=== PATIENT | male | born 1980 | race Two or more races ===

== ENCOUNTER 2018-08-16 19:08 | Inpatient (IN) | payer OTHER ==
[~2018-08-16] VITALS: Ht 172.7 cm; Wt 59.9 kg
[2018-08-16] MEDS ORDERED: HUMALOG100 UNIT/4 SUBQ (19:14)
[2018-08-16] MEDS ORDERED: UNOBMED (19:14)
[2018-08-16 19:28] VITALS: BP 138/76
[2018-08-16 19:28] LABS: BASOPHILS % (AUTO) 1.7 % (0.0-2.0); EOSINOPHILS % (AUTO) 0.1 % (0.0-3.0); HEMATOCRIT 41.4 % (42.0-52.0); HEMOGLOBIN 12.9 G/DL (14.2-18.0); LYMPHOCYTES % (AUTO) 14.7 % (20.0-45.0); MEAN CORPUSCULAR VOLUME 87 FL (80-99); MONOCYTES % (AUTO) 6.6 % (1.0-10.0); NEUTROPHILS % (AUTO) 76.9 % (45.0-75.0); PLATELET COUNT 269 K/UL (150-450); RED BLOOD COUNT 4.77 M/UL (4.70-6.10); RED CELL DISTRIBUTION WIDTH 14.6 % (11.6-14.8); WHITE BLOOD COUNT 9.7 K/UL (4.8-10.8)
[2018-08-16] MEDS ORDERED: Insulin Human Regular 100units/ml 3ml IV ONE (19:30)
--- NOTE | 2018-08-16 19:30 | Emergency Room Report ---
History of Present Illness General Chief Complaint: Chest Pain Source: Patient Present Illness HPI Patient is a 38-year-old male brought in by EMS after increased blood sugar. Patient had reportedly been compliant with his insulin. He states that he had episode of diabetic ketoacidosis approximately 2 months ago. Patient had prior history of type 1 diabetes. He reports having increased difficulty with breathing. Patient denies any vomiting or diarrhea. He denies any fever. He denies any chest discomfort. Allergies: Coded Allergies: SULFA (SULFONAMIDE ANTIBIOTICS) (Verified Allergy, Unknown, 08/16/18) Patient History Past Medical History: see triage record Reviewed Nursing Documentation: PMH: Agreed; PSxH: Agreed Nursing Documentation-PMH Past Medical History: No History, Except For Hx Cardiac Problems: No - HIV Hx Hypertension: Yes Hx Diabetes: Yes Review of Systems All Other Systems: negative except mentioned in HPI Physical Exam Vital Signs Date Time Temp Pulse Resp B/P (MAP) Pulse Ox O2 Delivery O2 Flow Rate FiO2 08/16/18 19:05 90 24 138/76 96 Room Air General Appearance: alert, mild distress, Chronically Ill Eyes: bilateral eye other ENT: dry mucus membranes Respiratory: lungs clear Cardiovascular #1: normal peripheral pulses, regular rate, rhythm Gastrointestinal: normal inspection Musculoskeletal: normal inspection Neurologic: normal inspection, alert, oriented x3, responsive, diagnostic assistant III-XII nml as tested, motor strength/tone normal Skin: normal inspection, normal color Procedures Critical Care Time Critical Care Time Patient had a critical medical condition which untreated could potentially result in life or limb threatening injury. Total critical care time excluding procedures approximately 45 minutes. Medical Decision Making Diagnostic Impression: Primary Impression: Diabetic keto-acidosis ER Course Patient presented for shortness of breath. Differential diagnosis include is not limited to diabetic ketoacidosis, pneumonia, anemia among others. Because of complexity of patient's case laboratory testing and imaging studies were ordered. Patient was noted to have markedly elevated blood sugar greater than 700 initially. Patient was started on IV fluids and as well as IV insulin. He was started on insulin drip. Patient was noted to have some improvement in his blood sugar. Patient's laboratory testing was notable for pH slightly greater than 7. Patient's bicarb on metabolic panel was less than 5. Anion gap was 32. patient's potassium was 5 patient was started on insulin drip. Dr. Blake Danielle was contacted for inpatient management Labs Test 08/16/18 19:20 4/28/19 19:55 White Blood Count 9.7 K/UL (4.8-10.8) Red Blood Count 4.77 M/UL (4.70-6.10) Hemoglobin 12.9 G/DL (14.2-18.0) Hematocrit 41.4 % (42.0-52.0) Mean Corpuscular Volume 87 FL (80-99) Mean Corpuscular Hemoglobin 27.1 PG (27.0-31.0) Mean Corpuscular Hemoglobin Concent 31.3 G/DL (32.0-36.0) Red Cell Distribution Width 14.6 % (11.6-14.8) Platelet Count 269 K/UL (150-450) Mean Platelet Volume 6.9 FL (6.5-10.1) Neutrophils (%) (Auto) 76.9 % (45.0-75.0) Lymphocytes (%) (Auto) 14.7 % (20.0-45.0) Monocytes (%) (Auto) 6.6 % (1.0-10.0) Eosinophils (%) (Auto) 0.1 % (0.0-3.0) Basophils (%) (Auto) 1.7 % (0.0-2.0) Urine Color Pale yellow Urine Appearance Clear Urine pH 5 (4.5-8.0) Urine Specific [place] 1.015 (1.005-1.035) Urine Protein 2+ (NEGATIVE) Urine Glucose (UA) 4+ (NEGATIVE) Urine Ketones 4+ (NEGATIVE) Urine Blood 2+ (NEGATIVE) Urine Nitrite Negative (NEGATIVE) Urine Bilirubin Negative (NEGATIVE) Urine Urobilinogen Normal MG/DL (0.0-1.0) Urine Leukocyte Esterase Negative (NEGATIVE) Urine RBC 0-2 /HPF (0 - 0) Urine WBC 0 /HPF (0 - 0) Urine Squamous Epithelial Cells None /LPF (NONE/OCC) Urine Bacteria None /HPF (NONE) Sodium Level 130 MMOL/L (136-145) Potassium Level 5.0 MMOL/L (3.5-5.1) Chloride Level 93 MMOL/L (98-107) Carbon Dioxide Level < 5 MMOL/L (21-32) Anion Gap 32 mmol/L (5-15) Blood Urea Nitrogen 19 mg/dL (7-18) Creatinine 1.9 MG/DL (0.55-1.30) Estimat Glomerular Filtration Rate 40.1 mL/min (>60) Glucose Level 712 MG/DL (74-106) Calcium Level 8.8 MG/DL (8.5-10.1) Magnesium Level 2.2 MG/DL (1.8-2.4) Total Bilirubin 1.2 MG/DL (0.2-1.0) Direct Bilirubin 0.2 MG/DL (0.0-0.3) Aspartate Amino Transf (AST/SGOT) 13 U/L (15-37) Alanine Aminotransferase (ALT/SGPT) 24 U/L (12-78) Alkaline Phosphatase 201 U/L (46-116) Total Protein 8.4 G/DL (6.4-8.2) Albumin 4.0 G/DL (3.4-5.0) Globulin 4.4 g/dL Albumin/Globulin Ratio 0.9 (1.0-2.7) Lipase 152 U/L (73-393) Acetone Level Positive-moderate (NEGATIVE) Venous Blood pH 7.020 Venous Blood Partial Pressure CO2 16.4 Venous Blood Partial Pressure O2 57.8 Venous Blood HCO3 4.1 Venous Blood Total Carbon Dioxide 16.4 Venous Blood Oxygen Saturation 81.4 Venous Blood Base Excess -25.1 Methemoglobin 0.5 EKG Diagnostic Results Rate: normal Rhythm: NSR - 96 ST Segments: no acute changes Last Vital Signs Date Time Temp Pulse Resp B/P (MAP) Pulse Ox O2 Delivery O2 Flow Rate FiO2 08/16/18 19:05 90 24 138/76 96 Room Air Status: improved Condition: Critical Maxim Lakhani MD Aug 16, 2018 19:30
[2018-08-16 19:49] LABS: ALANINE AMINOTRANSFERASE 24 U/L (12-78); ALBUMIN/GLOBULIN RATIO 0.9 (1.0-2.7); ALKALINE PHOSPHATASE 201 U/L (46-116); ANION GAP 32 mmol/L (5-15); ASPARTATE AMINO TRANSFERASE 13 U/L (15-37); BILIRUBIN,TOTAL 1.2 MG/DL (0.2-1.0); BLOOD UREA NITROGEN 19 mg/dL (7-18); CALCIUM 8.8 MG/DL (8.5-10.1); CHLORIDE 93 MMOL/L (98-107); CREATININE 1.9 MG/DL (0.55-1.30); SODIUM 130 MMOL/L (136-145)
[2018-08-16 19:53] LABS: CARBON DIOXIDE < 5 MMOL/L (21-32)
[2018-08-16 19:54] LABS: BILIRUBIN,DIRECT 0.2 MG/DL (0.0-0.3)
[2018-08-16 20:17] LABS: APPEARANCE,URINE CLEAR; BILIRUBIN, URINE NEGATIVE (NEGATIVE); COLOR,URINE PALE YELLOW; GLUCOSE, URINE (UA) 4+ (NEGATIVE); KETONES,URINE 4+ (NEGATIVE); LEUKOCYTE ESTERASE ,URINE NEGATIVE (NEGATIVE); NITRITE,URINE NEGATIVE (NEGATIVE); PH,URINE 5 (4.5-8.0); PROTEIN,URINE 2+ (NEGATIVE); UROBILINOGEN,URINE NORMAL MG/DL (0.0-1.0)
[2018-08-16 20:46] VITALS: BP 117/78
[2018-08-16 22:28] VITALS: BP 120/79
[2018-08-16 23:00] VITALS: BP 133/90
[2018-08-16] MEDS ORDERED: Insulin Human Regular 100units/ml 3ml IV PRN (23:15)
[2018-08-16] MEDS ORDERED: Insulin Rate Change 1 Each MISC PRN (23:15)
[2018-08-16] MEDS ORDERED: Insulin Human Regular 100units/ml 3ml ONE (23:26)
[2018-08-16] MEDS: Insulin Human Regular 100units/ml 3ml IV PRN (23:46)
[2018-08-16] MEDS: Heparin 5000 units/ml inj SUBQ SCH (23:53)
[2018-08-17] VITALS (24 sets, daily range): BP systolic 92–168; BP diastolic 60–107
[2018-08-17] MEDS ORDERED: Insulin Rate Change 1 Each MISC PRN ×4 (05:15→23:00)
[2018-08-17] MEDS ORDERED: Insulin Human Regular 100units/ml 3ml IV PRN ×5 (05:15→19:15)
[2018-08-17 06:15] LABS: EOSINOPHILS % (AUTO) 0.6 % (0.0-3.0); HEMATOCRIT 34.3 % (42.0-52.0); HEMOGLOBIN 11.1 G/DL (14.2-18.0); LYMPHOCYTES % (AUTO) 13.9 % (20.0-45.0); MEAN CORPUSCULAR VOLUME 85 FL (80-99); MONOCYTES % (AUTO) 10.7 % (1.0-10.0); NEUTROPHILS % (AUTO) 72.9 % (45.0-75.0); PLATELET COUNT 240 K/UL (150-450); RED BLOOD COUNT 4.06 M/UL (4.70-6.10); RED CELL DISTRIBUTION WIDTH 14.6 % (11.6-14.8); WHITE BLOOD COUNT 5.7 K/UL (4.8-10.8)
[2018-08-17 06:32] LABS: ALANINE AMINOTRANSFERASE 20 U/L (12-78); ALBUMIN 3.3 G/DL (3.4-5.0); ALBUMIN/GLOBULIN RATIO 0.9 (1.0-2.7); ALKALINE PHOSPHATASE 148 U/L (46-116); ANION GAP 16 mmol/L (5-15); ASPARTATE AMINO TRANSFERASE 11 U/L (15-37); BILIRUBIN,DIRECT 0.2 MG/DL (0.0-0.3); BILIRUBIN,TOTAL 1.4 MG/DL (0.2-1.0); BLOOD UREA NITROGEN 13 mg/dL (7-18); CALCIUM 8.2 MG/DL (8.5-10.1); CARBON DIOXIDE 17 MMOL/L (21-32); CHLORIDE 110 MMOL/L (98-107); CREATININE 1.3 MG/DL (0.55-1.30); POTASSIUM 3.4 MMOL/L (3.5-5.1); SODIUM 142 MMOL/L (136-145)
[2018-08-17] MEDS: Pantoprazole Inj IVP SCH (08:22)
[2018-08-17] MEDS: Heparin 5000 units/ml inj SUBQ SCH ×2 (08:23→21:16)
--- NOTE | 2018-08-17 09:18 | Diagnostic Imaging Report ---
Indication: Cough Technique: One view of the chest Comparison: none Findings: Lungs and pleural spaces are clear. Heart size is normal Impression: No acute process
[2018-08-17] MEDS: Insulin Human Regular 100units/ml 3ml IV PRN ×3 (11:03→14:07)
--- NOTE | 2018-08-17 17:12 | History & Physical ---
History and Physical History & Physicial Chief complaint: Short of breath Present illness: This 38-year-old has type 1 diabetes for 20 years. He reports that he has been taking his insulin regularly. He had diabetic ketoacidosis and was hospitalized about 2 months ago. He offers no acute illness to explain his episode at this time. He began getting short of breath 1 day prior to admission and came to the emergency department with high blood sugar and severe acidosis. He was given medications and insulin drip was started. He is feeling better at this time. Past medical history: Type 1 diabetes mellitus with history of recurrent DKA Allergy sulfonamide antibiotics Medications reviewed Review of systems otherwise unremarkable He denies fevers chills or sweats. He denies chest pain nausea or vomiting. He has lost some weight. On exam he was tachypneic and tachycardic on admission but is now normal He is a thin young man in no distress The vital signs are stable The chest is clear and cardiac rhythm is regular The abdomen is soft and nontender without liver or spleen enlargement The extremities have no clubbing, cyanosis or edema There are no neurologic deficits Laboratory studies are reviewed Chest x-ray is clear Impressions: Diabetic ketoacidosis Plan: The patient improved on an insulin drip and is now been changed to subcutaneous Endocrinology consultation has been requested We will start oral diabetic diet Blake Danielle MD Aug 17, 2018 17:12
[2018-08-18] VITALS (21 sets, daily range): BP systolic 93–166; BP diastolic 66–104
[2018-08-18 05:51] LABS: HEMATOCRIT 26.6 % (42.0-52.0); HEMOGLOBIN 8.9 G/DL (14.2-18.0); MEAN CORPUSCULAR VOLUME 83 FL (80-99); PLATELET COUNT 168 K/UL (150-450); RED BLOOD COUNT 3.19 M/UL (4.70-6.10); RED CELL DISTRIBUTION WIDTH 14.4 % (11.6-14.8); WHITE BLOOD COUNT 3.1 K/UL (4.8-10.8)
[2018-08-18 06:18] LABS: ANION GAP 11 mmol/L (5-15); BLOOD UREA NITROGEN 5 mg/dL (7-18); CALCIUM 6.1 MG/DL (8.5-10.1); CARBON DIOXIDE 19 MMOL/L (21-32); CHLORIDE 115 MMOL/L (98-107); CREATININE 0.6 MG/DL (0.55-1.30); SODIUM 144 MMOL/L (136-145)
[2018-08-18 06:20] LABS: POTASSIUM 2.5 MMOL/L (3.5-5.1)
[2018-08-18] MEDS: NovoLOG Insulin Flexpen SUBQ SCH ×6 (07:44→20:45)
[2018-08-18] MEDS: Pantoprazole Inj IVP SCH (08:25)
[2018-08-18] MEDS: Heparin 5000 units/ml inj SUBQ SCH ×2 (08:28→20:38)
[2018-08-18] MEDS ORDERED: Levemir Flexpen SUBQ SCH (09:00)
[2018-08-18] MEDS: NS w/KCl 20mEq 1,000 ML IV SCH ×3 (09:39→21:30)
--- NOTE | 2018-08-18 10:16 | Pulmonology Progress Note ---
Assessment/Plan Assessment/Plan Diabetic ketoacidosis HIV family reports he has HIV, will bring meds off insulin drip transfer out of ICU ambulate dc tomorrow if stable Subjective Constitutional: Reports: no symptoms Neurologic: Reports: other - dizzy Allergies: Coded Allergies: SULFA (SULFONAMIDE ANTIBIOTICS) (Verified Allergy, Unknown, 08/16/18) Objective Last 24 Hour Vital Signs Date Time Temp Pulse Resp B/P (MAP) Pulse Ox O2 Delivery O2 Flow Rate FiO2 08/18/18 09:00 92 17 148/92 (110) 100 08/18/18 08:00 Room Air 08/18/18 08:00 89 17 147/97 (114) 100 08/18/18 07:59 96 08/18/18 07:00 87 19 159/98 (118) 100 08/18/18 06:00 87 19 140/92 (108) 08/18/18 05:00 85 15 151/91 (111) 08/18/18 04:00 98.5 83 17 157/90 (112) 08/18/18 04:00 89 08/18/18 04:00 Room Air 08/18/18 03:00 88 13 100 08/18/18 03:00 88 13 116/80 (92) 100 08/18/18 02:00 87 14 93/79 (84) 100 08/18/18 01:00 89 14 147/96 (113) 100 08/18/18 00:00 98.4 85 14 160/100 (120) 100 08/18/18 00:00 Room Air 08/17/18 23:00 83 23 152/90 (110) 100 08/17/18 22:00 85 16 168/107 (127) 100 08/17/18 21:00 86 15 143/89 (107) 100 08/17/18 20:00 79 08/17/18 20:00 Room Air 08/17/18 20:00 98.0 81 14 148/85 (106) 100 08/17/18 19:00 84 15 141/84 (103) 100 08/17/18 18:00 89 13 139/80 (99) 100 08/17/18 17:00 89 12 144/89 (107) 100 08/17/18 16:00 Room Air 08/17/18 16:00 98.2 85 15 116/69 (85) 99 08/17/18 16:00 92 08/17/18 15:00 90 17 141/90 (107) 100 08/17/18 14:00 96 16 133/86 (102) 100 08/17/18 13:00 102 18 138/86 (103) 100 08/17/18 12:00 101 08/17/18 12:00 Room Air 08/17/18 12:00 98.0 98 18 136/82 (100) 100 08/17/18 11:00 89 15 124/70 (88) 100 Intake and Output 08/17/18 08/18/18 18:59 06:59 Intake Total 2050.5 ml 1359.5 ml Output Total 1000 ml 1600 ml Balance 1050.5 ml -240.5 ml Intake Oral 1000 ml 250 ml IV Total 1050.5 ml 1109.5 ml Other 0 ml 0 ml Output Urine Total 1000 ml 1600 ml General Appearance: no acute distress HEENT: normocephalic Respiratory/Chest: lungs clear Cardiovascular: normal rate Microbiology Date/Time Source Procedure Growth Status 08/16/18 21:40 Rectum Received Laboratory Tests 08/18/18 04:50: White Blood Count 3.1L, Red Blood Count 3.19L, Hemoglobin 8.9L, Hematocrit 26.6L , Mean Corpuscular Volume 83, Mean Corpuscular Hemoglobin 27.9, Mean Corpuscular Hemoglobin Concent 33.4, Red Cell Distribution Width 14.4, Platelet Count 168, Mean Platelet Volume 7.2, Neutrophils (%) (Auto) , Lymphocytes (%) ( Auto) , Monocytes (%) (Auto) , Eosinophils (%) (Auto) , Basophils (%) (Auto) , Differential Total Cells Counted 100, Neutrophils % (Manual) 58, Lymphocytes % ( Manual) 26, Monocytes % (Manual) 12H, Eosinophils % (Manual) 3, Basophils % ( Manual) 1, Band Neutrophils 0, Platelet Estimate Adequate, Platelet Morphology Normal, Hypochromasia 2+, Anisocytosis 1+, Sodium Level 144, Potassium Level 2.5 *L, Chloride Level 115H, Carbon Dioxide Level 19L, Anion Gap 11, Blood Urea Nitrogen 5L, Creatinine 0.6#, Estimat Glomerular Filtration Rate > 60, Glucose Level 70L, Calcium Level 6.1#L Current Medications Medications (Trade) Dose Ordered Sig/Destiny Route PRN Reason Start Time Stop Time Status Last Admin Dose Admin Dextrose (Dextrose 50%) 25 ml Q30M PRN IV Hypoglycemia 08/18/18 06:45 09/17/18 06:44 Dextrose (Dextrose 50%) 50 ml Q30M PRN IV Hypoglycemia 08/18/18 06:45 09/17/18 06:44 08/18/18 07:47 Heparin Sodium (Porcine) (Heparin 5000 units/ml) 5,000 units EVERY 12 HOURS SUBQ 08/16/18 23:00 09/15/18 22:59 08/18/18 08:28 Insulin Aspart (NovoLOG) BEFORE MEALS AND HS SUBQ 08/18/18 11:30 09/17/18 11:29 Insulin Aspart (NovoLOG) 6 units NOVOTIAC SUBQ 08/18/18 06:45 09/17/18 06:44 Insulin Detemir (Levemir) 18 units DAILY SUBQ 08/18/18 09:00 09/17/18 08:59 08/18/18 08:27 Pantoprazole (Protonix) 40 mg DAILY IVP 08/17/18 09:00 09/16/18 08:59 08/18/18 08:25 Potassium Chloride 100 ml @ 100 mls/hr Q1H IVPB 08/18/18 07:00 08/18/18 10:59 08/18/18 09:39 Potassium Chloride (K-Dur) 20 meq TWICE A DAY ORAL 08/17/18 18:00 09/16/18 17:59 08/18/18 08:26 Sodium Chloride 1,000 ml @ 100 mls/hr Q10H IV 08/18/18 06:45 09/17/18 06:44 08/18/18 09:39 Blake Danielle MD Aug 18, 2018 10:16
--- NOTE | 2018-08-18 17:31 | Physician Query ---
--------- THIS DOCUMENT IS A PERMANENT PART OF THE MEDICAL RECORD --------- PLEASE COMPLETE THE DOCUMENT BEFORE SIGNING Dear Dr. Danielle Date: 08/18/18 Bed Teacher/CDS Name: Jo Ann Smyth Exercise your independent professional judgment when responding to query. Question asked do not imply a particular answer is desired/expected Clinical Documentation States:This 38-year-old has type 1 diabetes for 20 years. He reports that he has been taking his insulin regularly. He had diabetic ketoacidosis and was hospitalized about 2 months ago. He offers no acute illness to explain his episode at this time. He began getting short of breath 1 day prior to admission and came to the emergency department with high blood sugar and severe acidosis. He was given medications and insulin drip was started. He is feeling better at this time. Clinical Findings Show: 08/16 Creat 1.9 BUN 19 Egfr 40.1 08/17 Creat 1.3 BUN 13 Egfr >60 08/18 Creat 0.6 BUN 5 Egfr >60 Treatment: IVF Please Clarify the abnormality in creatinine and egfr values with a diagnosis: [x] acute kidney injury [] acute renal failure [] chronic renal failure [] other (please specify) [] unknown Condition Present on Admission: [x] Yes [] No []Clinically Undeterminable Please also document in your Progress Notes and/or Discharge Summary and indicate if the condition was present on admission. __ Signature Date MTDD
--- NOTE | 2018-08-18 17:45 | Consultation ---
DATE OF CONSULTATION: 08/18/2018 ENDOCRINOLOGY CONSULTATION CONSULTING PHYSICIAN: Yoshi Ramirez M.D. REFERRING PHYSICIAN: Blake Danielle M.D. REASON FOR CONSULTATION: Diabetic ketoacidosis. HISTORY OF PRESENT ILLNESS: The patient is a 38-year-old male with history of insulin-dependent type 1 diabetes for 28 years, presented to the hospital with abdominal discomfort and diabetic ketoacidosis. He mentioned he has been compliant with his insulin regimen. The patient was treated with IV fluid, IV insulin, admitted to the ICU, was called to manage diabetes. This morning, sodium is 144, potassium 2.5, chloride 115, bicarb 19, and anion gap of 11. Anion gap on presentation was 32 with an undetectable bicarb. Clinically has improved. Lipase is normal. The patient is started on a diet. PAST MEDICAL HISTORY: Type 1 diabetes. PAST SURGICAL HISTORY: None. FAMILY HISTORY: Noncontributory. SOCIAL HISTORY: No smoking, alcohol, or drug use. MEDICATIONS: Reviewed and reconciled. LABORATORY VALUES: Discussed in the history of present illness. PHYSICAL EXAMINATION: GENERAL: He is awake and alert. VITAL SIGNS: Blood pressure is 140/92, pulse 87, respiratory rate 19, and temperature 98.5. HEENT: Pupils are equal and reactive to light. Sclerae anicteric. NECK: No JVD. No thyromegaly. LUNGS: Clear. HEART: Regular rate and rhythm. ABDOMEN: Positive bowel sounds. EXTREMITIES: No clubbing, cyanosis, or edema. DIAGNOSES: 1. DKA. 2. Type 1 diabetes, out of control. DISCUSSION: Anion gap is closed. We can discontinue the insulin drip and start the patient on Levemir 18 units daily as well as NovoLog 6 units before each meal and NovoLog sliding scale. Potassium is low. I will treat the patient with KCl 40 mEq IV x1 and also NS at 100 mL/h. I will follow the patient closely during the hospital stay. Thank you, Dr. Danielle, for the courtesy of this consultation. Yoshi Ramirez M.D. DR: REDDY/FAUSTO JOB#: [id number] CC: LEONARDA
[2018-08-19] VITALS: BP 131/90
[2018-08-19 04:00] VITALS: BP 149/98
[2018-08-19] MEDS: NovoLOG Insulin Flexpen SUBQ SCH ×6 (06:10→16:47)
--- NOTE | 2018-08-19 06:36 | General Progress Note ---
Assessment/Plan Problem List: (1) Type 1 diabetes ICD Codes: E10.9 - Type 1 diabetes mellitus without complications SNOMED: 33278090 (2) Diabetic keto-acidosis ICD Codes: E13.10 - Other specified diabetes mellitus with ketoacidosis without coma SNOMED: 80887890, 253272459 Assessment/Plan: increase Levemir to 24 units qam continue Novolog 6 units + SSI Subjective ROS Limited/Unobtainable: Yes Allergies: Coded Allergies: SULFA (SULFONAMIDE ANTIBIOTICS) (Verified Allergy, Unknown, 08/16/18) Subjective events noted transferred out of ICU glucose elevated this morning Item Value Date Time Bedside Blood Glucose 340 mg/dl H 08/19/18 0611 Bedside Blood Glucose 133 mg/dl H 08/18/18 2100 Bedside Blood Glucose 164 mg/dl H 08/18/18 1643 Bedside Blood Glucose 159 mg/dl H 08/18/18 1129 Bedside Blood Glucose 559 mg/dl H 08/18/18 0827 Bedside Blood Glucose 105 mg/dl 08/18/18 0600 Objective Last 24 Hour Vital Signs Date Time Temp Pulse Resp B/P (MAP) Pulse Ox O2 Delivery O2 Flow Rate FiO2 08/19/18 04:00 96 08/19/18 04:00 Room Air 08/19/18 04:00 98.2 87 18 149/98 (115) 08/19/18 00:00 98.5 95 18 131/90 (104) 97 08/19/18 00:00 Room Air 08/18/18 20:00 Room Air 08/18/18 20:00 98.3 92 19 151/80 (103) 100 08/18/18 20:00 80 08/18/18 19:00 94 19 134/89 (104) 100 08/18/18 18:00 98.4 95 18 102/66 (78) 100 08/18/18 17:00 99 19 158/95 (116) 100 08/18/18 16:00 Room Air 08/18/18 16:00 85 21 149/92 (111) 100 08/18/18 15:55 85 08/18/18 15:00 89 15 144/88 (106) 100 08/18/18 14:00 88 17 128/78 (95) 99 08/18/18 13:00 95 19 121/81 (94) 100 08/18/18 12:00 98.3 101 20 126/93 (104) 100 08/18/18 12:00 Room Air 08/18/18 11:44 92 08/18/18 11:00 89 16 157/99 (118) 100 08/18/18 10:00 85 18 166/104 (124) 100 08/18/18 09:00 92 17 148/92 (110) 100 08/18/18 08:00 Room Air 08/18/18 08:00 98.4 89 17 147/97 (114) 100 08/18/18 07:59 96 08/18/18 07:00 87 19 159/98 (118) 100 Intake and Output 08/18/18 08/19/18 19:00 07:00 Intake Total 1540 ml 130 ml Output Total 2950 ml 1900 ml Balance -1410 ml -1770 ml Intake Oral 200 ml 130 ml IV Total 1340 ml Output Urine Total 2950 ml 1900 ml # Voids 2 Height (Feet): 5 Height (Inches): 8.00 Weight (Pounds): 133 General Appearance: no apparent distress Neck: normal alignment Cardiovascular: normal rate Respiratory/Chest: lungs clear Abdomen: normal bowel sounds Pelvis: normal external exam Objective Current Medications Medications (Trade) Dose Ordered Sig/Destiny Route PRN Reason Start Time Stop Time Status Last Admin Dose Admin Dextrose (Dextrose 50%) 25 ml Q30M PRN IV Hypoglycemia 08/18/18 21:15 09/17/18 06:44 Dextrose (Dextrose 50%) 50 ml Q30M PRN IV Hypoglycemia 08/18/18 21:15 09/17/18 06:44 Heparin Sodium (Porcine) (Heparin 5000 units/ml) 5,000 units EVERY 12 HOURS SUBQ 08/19/18 09:00 09/15/18 22:59 Insulin Aspart (NovoLOG) BEFORE MEALS AND HS SUBQ 08/19/18 06:30 09/17/18 11:29 08/19/18 06:11 Insulin Aspart (NovoLOG) 6 units NOVOTIAC SUBQ 08/19/18 06:30 09/17/18 06:44 08/19/18 06:10 Insulin Detemir (Levemir) 18 units DAILY SUBQ 08/19/18 09:00 09/17/18 08:59 Pantoprazole (Protonix) 40 mg DAILY IVP 08/19/18 09:00 09/16/18 08:59 Potassium Chloride (K-Dur) 40 meq TWICE A DAY ORAL 08/19/18 09:00 09/16/18 17:59 Sodium Chloride 1,000 ml @ 100 mls/hr Q10H IV 08/18/18 21:15 09/17/18 06:44 08/18/18 21:30 Yoshi Ramirez MD August 19, 2018 06:36
[2018-08-19 07:24] LABS: HEMATOCRIT 35.4 % (42.0-52.0); HEMOGLOBIN 11.5 G/DL (14.2-18.0); MEAN CORPUSCULAR VOLUME 84 FL (80-99); PLATELET COUNT 220 K/UL (150-450); RED BLOOD COUNT 4.21 M/UL (4.70-6.10); RED CELL DISTRIBUTION WIDTH 14.9 % (11.6-14.8); WHITE BLOOD COUNT 2.5 K/UL (4.8-10.8)
[2018-08-19 07:40] LABS: ANION GAP 8 mmol/L (5-15); BLOOD UREA NITROGEN 8 mg/dL (7-18); CALCIUM 8.6 MG/DL (8.5-10.1); CARBON DIOXIDE 27 MMOL/L (21-32); CHLORIDE 105 MMOL/L (98-107); CREATININE 0.9 MG/DL (0.55-1.30); POTASSIUM 3.3 MMOL/L (3.5-5.1); SODIUM 140 MMOL/L (136-145)
[2018-08-19 08:00] VITALS: BP 116/83
[2018-08-19] MEDS ORDERED: NOVOLOG100 UNITS1 SUBQ ×2 (08:47)
[2018-08-19] MEDS ORDERED: LEVEMIR FL100 UNIT/1 SUBQ (08:47)
[2018-08-19] MEDS ORDERED: Heparin 5000 units/ml inj SUBQ SCH (09:00)
[2018-08-19] MEDS ORDERED: Levemir Flexpen SUBQ SCH ×2 (09:00)
[2018-08-19] MEDS ORDERED: Pantoprazole Inj IVP SCH (09:00)
[2018-08-19] MEDS: NS w/KCl 20mEq 1,000 ML IV SCH ×2 (09:13→17:15)
[2018-08-19 12:00] VITALS: BP 97/65
[2018-08-19 16:00] VITALS: BP 135/93
--- NOTE | 2018-08-20 00:59 | Cardiology Report ---
APPROVED REPORT EKG Measurement Heart [id number] ND [id number] [id number] Normal sinus rhythm Possible Left atrial enlargement Borderline ECG
--- NOTE | 2018-08-20 10:13 | Discharge Summary ---
Discharge Summary Discharge Summary _ DATE OF ADMISSION: 08/16/2018 DATE OF DISCHARGE: 08/19/2018 DISCHARGED BY: Dr. Blake Danielle CONSULTANTS: Dr. Yoshi Ramirez BRIEF HOSPITAL COURSE: Patient is a 38-year-old male, with history of type 1 diabetes for 20 years. He reported that he had been taking his insulin regularly. He had diabetic ketoacidosis and was hospitalized about 2 months ago. He stated there has been no acute illness to explain his episode at this time. He started to get short of breath 1 day prior to admission. He then presented to ED for further evaluation. On evaluation at the ED, vital signs were stable. Blood work did not show any leukocytosis. Hemoglobin and hematocrit were stable. Blood glucose was 712. Sodium was 130, potassium 5.0 chloride 93. Carbon dioxide was less than 5. Anion gap was elevated to 32. BUN was 19, creatinine elevated to 1.9. Lipase was normal. Acetone level was positive. Venous blood gas showed severe acidosis. Chest x-ray did not show any acute process. He was started on IV fluids as well as insulin. He was started on insulin drip. He was then admitted to ICU for diabetic ketoacidosis. Patient was placed on n.p.o. He was continued on insulin drip and was given aggressive IV hydration. Clinical Pharmacy Manager was consulted. Hemoglobin A1c was 11. Patient improved on insulin drip and was changed to subcutaneous. Anion gap closed. He was eventually started on diabetic diet. He was started on Levemir nightly and NovoLog AC meals. He was given potassium replacement BID. Insulin dose was titrated. Glucose had better control. Potassium improved. Kidney function normalized. He was eventually discharged home. FINAL DIAGNOSES: Diabetic ketoacidosis Type 1 diabetes, out of control Acute kidney injury HIV DISPOSITION: Patient was discharged home. DISCHARGE MEDICATIONS: Refer to Discharge Medication List. DISCHARGE INSTRUCTIONS: Follow-up in a week. I have been assigned to complete a discharge summary on this account, I was not involved with the patient's management. Sherry Vicente NP August 20, 2018 10:13
== END 2018-08-19 18:46 | disposition home or self-care (01) | DRG 638 ==
LOC: EDBD 19:08 → EMR 20:20 → ICU 21:15 → EDBEDREQ 21:31 → 2E 08-18 21:02
DX: E10.10 Type 1 diabetes mellitus with ketoacidosis without coma (principal); N17.9 Acute kidney failure, unspecified; Z21 Asymptomatic human immunodeficiency virus [HIV] infection status; Z79.4 Long term (current) use of insulin; Z88.1 Allergy status to other antibiotic agents; Z88.2 Allergy status to sulfonamides
CPT/HCPCS: 36415; 36600; 71045; 80048; 80053; 81003; 82009; 82248; 82803; 82962; 83036; 83690; 83735; 85007; 85025; 87081; 93005; 96361; 96374; 99291; J1815; J8499; S5561

== ENCOUNTER 2019-03-04 13:57 | Emergency (ER) | payer MEDICARE, OTHER ==
[~2019-03-04] VITALS: Ht 167.6 cm; Wt 68.0 kg
--- NOTE | 2019-03-04 13:52 | Emergency Room Report ---
History of Present Illness General Chief Complaint: Syncope Source: Patient Present Illness HPI Patient is a 38-year-old male who presents after reported syncopal episode. Patient a prior history of HIV as well as type 1 diabetes. He was noted to be hypotensive in the field as well as having hypertension. He was noted to be hypotensive in the field. He had markedly elevated blood sugar when initially checked by EMS. He reports having a moderate headache. Patient was started on IV fluids by EMS. He was noted to have some improvement his blood pressure subsequently. Allergies: Coded Allergies: SULFA (SULFONAMIDE ANTIBIOTICS) (Verified Allergy, Unknown, 08/16/18) Uncoded Allergies: SULFA (Allergy, Unknown, 03/04/19) Patient History Reviewed Nursing Documentation: PMH: Agreed; PSxH: Agreed Nursing Documentation-PMH Hx Cardiac Problems: No - HIV Hx Diabetes: Yes Review of Systems All Other Systems: negative except mentioned in HPI Physical Exam Vital Signs Date Time Temp Pulse Resp B/P (MAP) Pulse Ox O2 Delivery O2 Flow Rate FiO2 03/04/19 13:44 98.8 116 18 117/77 (90) 99 Room Air General Appearance: alert, mild distress, Chronically Ill Eyes: bilateral eye PERRL ENT: normal pharynx Neck: full range of motion Respiratory: lungs clear, normal breath sounds, no rhonchi, no respiratory distress Gastrointestinal: normal inspection Musculoskeletal: normal inspection Neurologic: normal inspection, alert, oriented x3, responsive, high pressure cleaner III-XII nml as tested Skin: rash - facial rash Medical Decision Making Diagnostic Impression: Primary Impression: Type 1 diabetes Additional Impressions: Syncope Hyperglycemia ER Course Patient presented for syncopal episode. Differential diagnosis include was not limited to dehydration, diabetic ketoacidosis, hyperglycemia among others. Because of complexity of patient's case laboratory tests and imaging studies were ordered. EKG interpreted by me showed normal sinus rhythm with a rate of [address] changes. Patient was noted to have slight elevated at QTC. Laboratory testing showed no evidence of diabetic ketoacidosis.Patient started on IV fluids and given insulin. Patient was discussed with Dr. Santos who agreed to accept the patient as transfer. Labs Test 03/04/19 14:15 03/04/19 14:50 White Blood Count 5.9 K/UL (4.8-10.8) Red Blood Count 3.97 M/UL (4.70-6.10) Hemoglobin 10.6 G/DL (14.2-18.0) Hematocrit 33.0 % (42.0-52.0) Mean Corpuscular Volume 83 FL (80-99) Mean Corpuscular Hemoglobin 26.7 PG (27.0-31.0) Mean Corpuscular Hemoglobin Concent 32.1 G/DL (32.0-36.0) Red Cell Distribution Width 15.6 % (11.6-14.8) Platelet Count 261 K/UL (150-450) Mean Platelet Volume 5.8 FL (6.5-10.1) Neutrophils (%) (Auto) 59.1 % (45.0-75.0) Lymphocytes (%) (Auto) 23.8 % (20.0-45.0) Monocytes (%) (Auto) 12.1 % (1.0-10.0) Eosinophils (%) (Auto) 2.8 % (0.0-3.0) Basophils (%) (Auto) 2.2 % (0.0-2.0) Sodium Level 133 MMOL/L (136-145) Potassium Level 3.8 MMOL/L (3.5-5.1) Chloride Level 101 MMOL/L (98-107) Carbon Dioxide Level 24 MMOL/L (21-32) Anion Gap 9 mmol/L (5-15) Blood Urea Nitrogen 19 mg/dL (7-18) Creatinine 1.4 MG/DL (0.55-1.30) Estimat Glomerular Filtration Rate 57.0 mL/min (>60) Glucose Level 390 MG/DL (74-106) Calcium Level 6.8 MG/DL (8.5-10.1) Magnesium Level 1.7 MG/DL (1.8-2.4) Total Bilirubin 0.4 MG/DL (0.2-1.0) Aspartate Amino Transf (AST/SGOT) 20 U/L (15-37) Alanine Aminotransferase (ALT/SGPT) 21 U/L (12-78) Alkaline Phosphatase 142 U/L (46-116) Troponin I 0.000 ng/mL (0.000-0.056) Total Protein 5.8 G/DL (6.4-8.2) Albumin 2.5 G/DL (3.4-5.0) Globulin 3.3 g/dL Albumin/Globulin Ratio 0.8 (1.0-2.7) Acetone Level Negative (NEGATIVE) Urine Color Pale yellow Urine Appearance Clear Urine pH 5 (4.5-8.0) Urine Specific [place] 1.010 (1.005-1.035) Urine Protein 2+ (NEGATIVE) Urine Glucose (UA) 4+ (NEGATIVE) Urine Ketones Negative (NEGATIVE) Urine Blood 2+ (NEGATIVE) Urine Nitrite Negative (NEGATIVE) Urine Bilirubin Negative (NEGATIVE) Urine Urobilinogen Normal MG/DL (0.0-1.0) Urine Leukocyte Esterase 1+ (NEGATIVE) Urine RBC 5-10 /HPF (0 - 0) Urine WBC 5-10 /HPF (0 - 0) Urine Squamous Epithelial Cells Few /LPF (NONE/OCC) Urine Amorphous Sediment Moderate /LPF (NONE) Urine Bacteria Few /HPF (NONE) Urine Mucus Few /LPF (NONE/OCC) EKG Diagnostic Results Rate: normal - 98 Rhythm: NSR ST Segments: no acute changes Last Vital Signs Date Time Temp Pulse Resp B/P (MAP) Pulse Ox O2 Delivery O2 Flow Rate FiO2 03/04/19 13:44 98.8 116 18 117/77 (90) 99 Room Air Status: improved [facility] Condition: Stable Maxim Lakhani MD Mar 04, 2019 13:52
[~2019-03-04 13:57] MED LIST: HUMALOG100 UNIT/4 SUBQ; LEVEMIR FL100 UNIT/1 SUBQ; NOVOLOG100 UNITS1 SUBQ; UNOBMED
[2019-03-04 14:37] VITALS: BP 147/91
--- NOTE | 2019-03-04 14:47 | Diagnostic Imaging Report ---
Indication: Dyspnea Comparison: 08/17/2018 A single view chest radiograph was obtained. Findings: Cardiomediastinal appearance is within normal limits for age. The lungs are clear. Pulmonary vascularity is appropriate. The diaphragmatic contour is smooth and costophrenic angles are sharp. No pleural effusions are identified. The bones are unremarkable. Impression: No acute findings
[2019-03-04 14:53] LABS: BASOPHILS % (AUTO) 2.2 % (0.0-2.0); EOSINOPHILS % (AUTO) 2.8 % (0.0-3.0); HEMOGLOBIN 10.6 G/DL (14.2-18.0); LYMPHOCYTES % (AUTO) 23.8 % (20.0-45.0); MEAN CORPUSCULAR VOLUME 83 FL (80-99); MONOCYTES % (AUTO) 12.1 % (1.0-10.0); NEUTROPHILS % (AUTO) 59.1 % (45.0-75.0); PLATELET COUNT 261 K/UL (150-450); RED BLOOD COUNT 3.97 M/UL (4.70-6.10); RED CELL DISTRIBUTION WIDTH 15.6 % (11.6-14.8); WHITE BLOOD COUNT 5.9 K/UL (4.8-10.8)
[2019-03-04 15:14] LABS: ANION GAP 9 mmol/L (5-15); BLOOD UREA NITROGEN 19 mg/dL (7-18); CALCIUM 6.8 MG/DL (8.5-10.1); CARBON DIOXIDE 24 MMOL/L (21-32); CHLORIDE 101 MMOL/L (98-107); CREATININE 1.4 MG/DL (0.55-1.30); POTASSIUM 3.8 MMOL/L (3.5-5.1); SODIUM 133 MMOL/L (136-145)
[2019-03-04 15:18] LABS: APPEARANCE,URINE CLEAR; BILIRUBIN, URINE NEGATIVE (NEGATIVE); COLOR,URINE PALE YELLOW; GLUCOSE, URINE (UA) 4+ (NEGATIVE); KETONES,URINE NEGATIVE (NEGATIVE); LEUKOCYTE ESTERASE ,URINE 1+ (NEGATIVE); NITRITE,URINE NEGATIVE (NEGATIVE); PH,URINE 5 (4.5-8.0); PROTEIN,URINE 2+ (NEGATIVE); UROBILINOGEN,URINE NORMAL MG/DL (0.0-1.0)
[2019-03-04 15:24] LABS: ALANINE AMINOTRANSFERASE 21 U/L (12-78); ALBUMIN 2.5 G/DL (3.4-5.0); ALBUMIN/GLOBULIN RATIO 0.8 (1.0-2.7); ALKALINE PHOSPHATASE 142 U/L (46-116); ASPARTATE AMINO TRANSFERASE 20 U/L (15-37); BILIRUBIN,TOTAL 0.4 MG/DL (0.2-1.0)
[2019-03-04] MEDS ORDERED: cefTRIAXone 1 GM in NS 55 ML IVPB ONE (16:15)
[2019-03-04] MEDS ORDERED: Insulin Human Regular 100units/ml 3ml SUBQ ONE (16:30)
[2019-03-04 16:45] VITALS: BP 152/90
[2019-03-04 18:38] VITALS: BP 156/91
[2019-03-04 19:05] VITALS: BP 144/92
[2019-03-04 19:41] VITALS: BP 144/92
--- NOTE | 2019-03-06 14:58 | Cardiology Report ---
APPROVED REPORT EKG Measurement Heart [id number] Normal sinus rhythm Possible Left atrial enlargement Rightward axis Possible Anterior infarct, age undetermined Abnormal ECG
== END 2019-03-04 19:41 | disposition short-term general hospital (02) ==
LOC: EDBD 13:57 → EMR 15:31
DX: E10.65 Type 1 diabetes mellitus with hyperglycemia (principal); R55 Syncope and collapse; Z88.2 Allergy status to sulfonamides
CPT/HCPCS: 36415; 71045; 80053; 81003; 82009; 82962; 83735; 84484; 85025; 93005; 96361; 96365; 96372; 99285; J0696; J1815; J7030